=== PATIENT | female | born 1930 | race Caucasian/White ===

== ENCOUNTER 2017-02-26 05:37 | Day surgery (SDC) | payer MEDICARE, OTHER ==
[~2017-02-26] VITALS: Ht 169.6 cm; Wt 66.1 kg
[2017-02-26] VITALS (7 sets, daily range): BP systolic 118–163; BP diastolic 50–76; PULSE 67–77; RESP 13–20; O2SAT 91–99
[~2017-02-26 05:37] MED LIST: CYA1000I IM; CYCL1DRO AFFECT_EYE; DIPH1TAB PO; FURO-129 PO; GABA-500 PO; HYDR-3825 PO; IMIP10TA3 PO; Lactated Ringer's 1,000 ML IV SCH; SPIR25TA3 PO; THYR90TA PO; VERA120T84 PO; ZYL100 PO
[2017-02-26] MEDS ORDERED: Propofol 10,000 mCg/mL 20 mL Inj ONE (05:38)
[2017-02-26] MEDS ORDERED: Ketamine 10 mg/mL 20 mL Inj ONE (05:38)
[2017-02-26] MEDS ORDERED: Lactated Ringer's 1,000 ML IV ONE (06:02)
[2017-02-26] MEDS ORDERED: Lidocaine 1%-Epi 1:100,000 20 mL Inj INFILTRATE ONE (07:07)
[2017-02-26] MEDS ORDERED: HYDROcodone-APAP 5-325 mg Tablet PO PRN (07:15)
[2017-02-26] MEDS ORDERED: Lactated Ringer's 500 ML IV PRN (07:17)
[2017-02-26] MEDS ORDERED: Lactated Ringer's 1,000 ML IV SCH (07:17)
--- NOTE | 2017-02-26 07:17 | PCM.HPANE ---
Patient Data Surgeon Admitting Provider: Attending Provider:Edgardo Jones DO Primary Care Physician:Mariano Hayes MD Other Provider:Quincy Blakely Anesthesia Reason for Visit Left Carpal Tunnel Syndrome Ht/WT & BMI Height (Feet): 5 Height (Inches): 6.75 Weight (Kilograms): 66.134 Body Mass Index 22.00 Allergies Coded Allergies: Penicillins (Verified Allergy, Unknown, UNKNOWN, 02/24/17) atenolol (Verified Allergy, Unknown, UNKNOWN, 02/24/17) hydroxychloroquine (Verified Allergy, Unknown, UNKNOWN, 02/24/17) Past Anesthesia History Anesthesia History: Denies:: Abnormal Airway, Anesthesia Reactions, Difficult Intubation, Malignant Hyperthermia Diabetes History Hx Diabetes?: No MRSA MRSA: No Medications Hypertension Medication: Yes (VERAPAMIL ER) Home Meds Incl Beta Koffi: No Reported Medications Verapamil ER 120 Mg Tablet.er120 Mg PO DAILY Ref 0 02/24/17 Spironolactone 25 Mg Rycjuu92.5 Mg PO DAILY #30 TABLET Ref 0 02/24/17 Cyclosporine (Restasis)1 Each Droperette1 Each AFFECT_EYE Q12H 02/24/17 Diphenoxylate/Atropine 2.5-0.025 mg (Lomotil 2.5-0.025 mg)1 Each Tablet1 Tablet PO BID PRN PRN 02/24/17 Imipramine HCl 10 Mg Wgrzml87 Mg PO HS PRN PRN Ref 0 02/24/17 Hydrocodone-Acetaminophen 7.5-325 mg 1 Each Tablet1 Tablet PO DAILY PRN For Pain Ref 0 02/24/17 Gabapentin 100 Mg Vptruoj263 Mg PO TID 30 Days Ref 0 02/24/17 Furosemide (Lasix)20 Mg Ycabpz41 Mg PO DAILY 30 Days Ref 0 02/24/17 Cyanocobalamin (Cyanocobalamin Injection)1,000 Mcg/1 Ml Vial1,000 Mcg IM Monthly 02/24/17 Thyroid,Pork ([place] Thyroid)90 Mg Wzgglr97 Mg PO DAILY 02/24/17 Allopurinol 100 Mg Uyyezu127 Mg PO DAILY Ref 0 02/24/17 History History of ENT Problems?: Yes HEENT History: Positive for:: Cataracts Sinus Problem (ALLERGIC RHINITIS) Denies:: Abnormal Airway Difficult Intubation Denture Type: None Teeth Condition: Within Normal Limits Hx of Heart Problems?: Yes Cardiovascular History: Positive for:: Hypertension (HYPERLIPIDEMIA) Denies:: Irregular Heartbeat Hx of Respiratory Problem?: No Respiratory History: Denies:: Asthma COPD Chest Surgery Cough Dyspnea Emphysema Hemoptysis Oxygen Administration Pneumonia Pulmonary Embolism Tuberculosis Use of C-PAP Machine Use of Inhalers / NEBS Hx Neurologic Problems?: Yes Neurological History: Denies:: Alzheimer's Disease CVA Dementia Dizziness Headaches Multiple Sclerosis Parkinson's Disease Peripheral Neuropathy Seizures TIA Other Neurological Pertinent: HX POLYMYALGIA RHEUMATICA Hx of GI Problems?: Yes Gastrointestinal History: Denies:: Cirrhosis Diverticulitis Gall Bladder Disease Gastroesphageal Reflux Gastrointestinal Bleeding Heartburn Hepatitis Hiatal Hernia Liver Disease Rectal Bleeding Other GI Pertinent History: S/P APPY,PARTIAL COLECTOMY C/OF IBS Hx of Problems?: Yes Genitourinary History: Denies:: HX of Hemodialysis Kidney Stones Urinary Tract Infection Female Hx: Denies:: Currently (S/P OOPHORECTOMY) Skin History: Denies:: History Skin Disorders? Pressure Ulcers Hx Musculoskeletal Problems?: Yes Musculoskeletal History: Positive for:: Osteoarthritis (SLIGHT LT SHOULDER DEFORMITY) Denies:: Back Injury Degenerative Joint Fibromyalgia Joint Replacement Musculoskeletal Trauma Myasthenia Gravis Rheumatoid Arthritis Systemic Lupus Hx of Psycho/Social Problems?: Yes Psycho Social History: Positive for:: Hx Depression Hx Surgeries?: Yes (APPY,AYE,HYST,OOPHORECTOMY,PARTIAL COLECTOMY) Hx Any Other Health Problems?: Yes Other History: Positive for:: Thyroid Disease Denies:: Cancer Endocrine Disease (C/OF COLD INTOLERANCE) Hospitalization Hx Diabetes: No Have You Smoked inLast 12 mo: NoApprox How Many Cigarettes/day: 1/2 PPD X 20YRS Stop/Bang S-Snoring: Do You Snore Loudly: No T-Tired: feel tired, fatigued: Yes O-Obsered: Observed not breath: No P-Blood Pressure: treated: Yes B- Body Mass Index > 35 kg/m2: No A- Age over 50: Yes N- Neck Large Circumference: No G- Gender Male: No ARMANDO Total Score: 3 Risk Assessment Category Category 1A: Patient has history of documented sleep apnea, and HAS NOT received any narcotic, sedative or anesthesia administration during this stay. Category 1B: Patient has history of documented sleep apnea, and HAS received any narcotic , sedative or anesthesia administration during this stay Category 2: Patient has SUSPECTED Obstructive Sleep Apnea, and HAS received any narcotic , sedative or anesthesia administration during this stay. Category 3: Patient has SUSPECTED Obstructive Sleep Apnea and HAS NOT received narcotic, sedative or anesthesia administration during this stay. Category 4: Outpatient in Procedural Areas with known sleep apnea or who screen positive for High Risk via the STOP/BANG questionnaire. Exam Exam Vital Signs Vital Signs Date Time Temp Pulse Resp B/P Pulse Ox O2 Delivery O2 Flow Rate FiO2 02/26/17 06:02 36.9 72 17 163/69 99 Room Air General Appearance: Alert, Oriented X3, Cooperative HEENT/AIRWAY: MP 2 Lungs: Clear to Auscultation, Normal Air Movement Heart: Exam Unremarkable, Regular Rate/Rhythm, No Murmurs/Rubs/Gallops Meds/Labs/Diagnostics Admission Meds Current Medications Lactated Ringer's (Lr) 1,000 ml @ ud STK-MED ONCE IV Last administered on 06:02; Start 02/26/17 at 06:02; Stop 02/26/17 at 06:03; Status DC Lidocaine/ Epinephrine (Xylocaine 1%-Epinephrine 1:100,000 Inj) 20 ml STK-MED ONCE INFILTRATE Last administered on 02/26/17 07:07; Start 02/26/17 at 07:07; Stop 02/26/17 at 07:10; Status DC Plan Impression Patient chart reviewed, patient interviewed and anesthestic plan with risks, benefits, and alternatives discussed, and informed consent obtained. NPO per Anesth. Guidelines: Yes ASA Physical Status: ASA2 Mod Systemic Disease Anesthetic Plan: GA Bene/Risks/Altern/Consents: Yes HP Complete Prior to Induction: Yes Nelson Melvin MD Feb 26, 2017 07:17
[2017-02-26] MEDS ORDERED: MetoCLOpramide 5 mg/mL 2 mL Inj IVPUSH PRN (07:20)
[2017-02-26] MEDS ORDERED: Phenylephrine 10,000 mCg/mL Inj IVPUSH PRN (07:20)
[2017-02-26] MEDS ORDERED: EPHEDrine Sulfate 50 mg/mL Inj IVPUSH PRN (07:20)
[2017-02-26] MEDS ORDERED: fentaNYL-PF 50 mCg/mL 2 mL Inj IVPUSH PRN (07:20)
[2017-02-26] MEDS ORDERED: Dexamethasone 4 mg/mL Inj IVPUSH PRN (07:20)
[2017-02-26] MEDS ORDERED: HYDROmorphone 1 mg/mL Inj IVPUSH PRN (07:20)
[2017-02-26] MEDS ORDERED: Ondansetron 2 mg/mL 2 mL Inj IVPUSH PRN (07:20)
--- NOTE | 2017-02-26 09:19 | OP ---
[address] [id number] OPERATIVE REPORT PATIENT: BABAK PASCUAL : 1930 MR#: [id number] ADMIT: 02/26/2017 JOB ID: [id number] DATE OF SURGERY: 02/26/2017 PREOPERATIVE DIAGNOSIS(ES): Left carpal tunnel syndrome. POSTOPERATIVE DIAGNOSIS(ES): Left carpal tunnel syndrome. PROCEDURE: Left open carpal tunnel release. SURGEON: Edgardo Jones D.O. WEAPONS ENGINEER: Joanna Correa PA-C ANESTHESIA: General. HISTORY: The patient is a pleasant 86-year-old female with longstanding history of bilateral hand pain and paresthesias. Prior to leaving for [place], I diagnosed her with left carpal tunnel syndrome. She had failed conservative treatment but did not seek treatment in [place] and returned to [place] following her prolonged stay stating that her symptoms are worsening. I discussed with the patient at that time the option to proceed with a left open carpal tunnel release. She understood the risks include, but not limited to, neurovascular injury, tendon injury, infection, failure of fixation, failure to relieve the patient of her preoperative symptoms, stiffness, persistent pain, all of which may require further intervention. The patient had all questions answered. Consent was signed and placed in chart. PROCEDURE IN DETAIL: The patient was brought to the operative suite and placed supine on the operating table. Surgical time-out was performed. Everyone in the room was in agreement. After appropriate anesthesia was obtained, a left upper arm tourniquet was applied and the left upper extremity was prepped and draped in a sterile fashion. Left upper extremity was then exsanguinated and tourniquet inflated to 250 mmHg. The patient's left hand was approached with a 2 cm longitudinal incision in line with the radial aspect of the ring finger and the ulnar aspect of the palmaris longus. The incision was kept distal to the wrist crease and proximal to Landry cardinal line. Subcutaneous tissues were dissected and bipolar electrocautery utilized to maintain hemostasis throughout the procedure. The palmar fascia was first identified and incised longitudinally in line with the skin incision followed by exposure of the underlying transverse carpal ligament. Transverse carpal ligament was then released in its entirety to include the distal extent of the antebrachial fascia. Copious irrigation was then performed followed by closure of the skin with 5-0 nylon in a simple interrupted fashion. The patient was then placed in a bulky soft dressing. ESTIMATED BLOOD LOSS: Less than 1 cc. COMPLICATIONS: None. DISPOSITION: The patient tolerated the procedure well. Anesthesia was reversed. The patient was transferred back to recovery. POSTOPERATIVE PLAN: The patient will followup in my office in two weeks. We will remove the patient's sutures at that time and have her start working on range of motion and scar mobilization.
--- NOTE | 2017-02-26 10:34 | PCM.ANEP1 ---
Post Anesthesia PACU Phase 1 Assessment Vital Signs Vital Signs Date Time Temp Pulse Resp B/P Pulse Ox O2 Delivery O2 Flow Rate FiO2 02/26/17 08:20 71 16 148/50 97 Room Air 02/26/17 08:15 36.3 72 19 120/76 97 Room Air 02/26/17 08:05 70 16 118/60 99 Nasal Cannula 2 02/26/17 08:00 69 19 129/53 96 Nasal Cannula 2 02/26/17 07:55 77 20 131/60 91 Room Air 02/26/17 07:52 36.8 67 13 140/58 99 Room Air 02/26/17 06:02 36.9 72 17 163/69 99 Room Air Anesthetic Administered: MAC Level of Alertness: Awake, talking CARBAJAL's with Equal Strength: Yes Pain: No Nausea or Vomiting: No CV Function & Hydration Stable: Yes Airway Device: none Lungs: Clear to Auscultation, Normal Air Movement Dermatome Level: Full Sensation PACU Phase 2 Assessment Complications: No Follow up Care: No Patient Instructions Provided: Yes Nelson Melvin MD Feb 26, 2017 10:34
== END 2017-02-26 23:59 | disposition home or self-care (01) ==
LOC: SAS 05:37
PROVIDERS: ATTEND Orthopaedic Surgery
DX: G56.03 Carpal tunnel syndrome, bilateral upper limbs (principal); G56.02 Carpal tunnel syndrome, left upper limb; I10 Essential (primary) hypertension; M35.3 Polymyalgia rheumatica; M10.9 Gout, unspecified
CPT/HCPCS: 64721; J7120